=== PATIENT | male | born 1965 | race Caucasian/White ===

== ENCOUNTER 2023-11-02 10:19 | Emergency (ER) | payer OTHER ==
[~2023-11-02] VITALS: Ht 180.3 cm; Wt 109.0 kg
[2023-11-02] MEDS ORDERED: propofoL 200 MG/20 ML VIAL IV ONE (11:00)
[2023-11-02] MEDS ORDERED: fentaNYL citrate 100 MCG/2 ML VIAL IV ONE ×2 (11:00)
[2023-11-02 11:43] VITALS: BP 124/75
== END 2023-11-02 11:46 | disposition other institution, planned readmission (95) ==
LOC: ED 10:19
DX: S43.034A Inferior dislocation of right humerus, initial encounter (principal); S43.014A Anterior dislocation of right humerus, initial encounter; X58.XXXA Exposure to other specified factors, initial encounter; I10 Essential (primary) hypertension
CPT/HCPCS: 23650; 73030; 94640; 99152; 99284-25; J2704; J3010